=== PATIENT | female | born 1975 ===

== ENCOUNTER 2022-07-20 18:20 | Emergency (ER) | payer SELFPAY ==
[2022-07-20] MEDS ORDERED: LIDOCAINE (1%) 10 MG/1 ML VIAL 20 ML MDV INFILTRATI ONE ×2 (20:56→23:15)
[2022-07-20] MEDS ORDERED: ONDANSETRON 4 MG ODT TAB PO ONE (20:56)
[2022-07-20] MEDS ORDERED: CLINDAMYCIN 300 MG CAP PO ONE (20:56)
[2022-07-20] MEDS ORDERED: oxyCODONE /ACETAMINOPHEN 5-325MG TAB PO ONE (20:56)
[2022-07-20] MEDS ORDERED: SULFAMETHOXAZOLE/TRIMETHOPRIM 800/160MG DS TAB PO ONE (20:56)
--- NOTE | 2022-07-20 22:34 | Emergency Department Report ---
ED General Adult HPI - General Chief complaint: Urogenital-Female Stated complaint: VAGINAL INFECTION Source: patient Mode of arrival: Ambulatory Limitations: No Limitations - History of Present Illness Initial comments: Patient is a 47-year-old female with no past medical history presents to the ED with complaint of acute onset persistent painful swollen right Barthol in gland for the last 3 days. Patient states that the swelling and pain have worsened in the last 24 hours. Patient states that she has previously had similar symptoms which was drained at another hospital few years ago. Patient denies dizziness, syncope, fever, chills, abdominal pain, nausea and vomiting or chest pain, cough, sore throat, diarrhea, dysuria, urinary frequency or urgency or back pain. MD Complaint: Painful right Bartholin's cyst gland swelling -: Gradual, days(s) (3) Location: genitals Radiation: non-radiation Severity scale (0 -10): 8 Quality: aching, sharp Consistency: constant Improves with: none Worsens with: movement, other Associated Symptoms: denies other symptoms, rash (swollen painful right Bartholin's gland). denies: confusion, chest pain, cough, diaphoresis, fever/chills, loss of appetite, malaise, nausea/vomiting, seizure, shortness of breath, syncope, weakness Treatments Prior to Arrival: none - Related Data Previous Rx's Medication Instructions Recorded Last Taken Type Ciprofloxacin HCl [Ciprofloxacin 500 mg PO Q12H 10 Days #20 tab 11/21/18 Unknown Rx TAB] Ferrous Sulfate [Ferrous Sulfate 324 mg PO TID #90 tablet.dr 11/21/18 Unknown Rx 324 MG] Naproxen [Naprosyn] 500 mg PO BID PRN #12 tablet 11/21/18 Unknown Rx Ondansetron [Zofran ODT TAB] 8 mg PO Q8HR PRN #12 tab.rapdis 11/21/18 Unknown Rx Phenazopyridine [Pyridium] 200 mg PO TID PRN 3 Days #9 tab 11/21/18 Unknown Rx Clindamycin [Clindamycin CAP] 300 mg PO Q8H #30 cap 07/20/22 Unknown Rx Ibuprofen [Motrin] 600 mg PO Q8H PRN #30 tablet 07/20/22 Unknown Rx Sulfamethoxazole/Trimethoprim 1 each PO Q12H #20 tab 07/20/22 Unknown Rx [Bactrim DS TAB] traMADoL [Ultram] 50 mg PO Q6HR PRN #12 tablet 07/20/22 Unknown Rx Allergies Allergy/AdvReac Type Severity Reaction Status Date / Time No Known Allergies Allergy Verified 11/21/18 00:18 ED Review of Systems ROS: Stated complaint: VAGINAL INFECTION Other details as noted in HPI Constitutional: denies: chills, fever Eyes: denies: eye pain, eye discharge, vision change ENT: denies: ear pain, throat pain Respiratory: denies: cough, shortness of breath, wheezing Cardiovascular: denies: chest pain, palpitations Endocrine: no symptoms reported Gastrointestinal: denies: abdominal pain, nausea, diarrhea Genitourinary: other (swollen painful mildly erythematous rash on right Bartholin's gland). denies: urgency, dysuria, discharge Musculoskeletal: denies: back pain, joint swelling, arthralgia Skin: rash (swollen painful right Bartholin's gland ), change in color. denies: lesions, change in hair/nails, pruritus Neurological: denies: headache, weakness, paresthesias Psychiatric: denies: anxiety, depression Hematological/Lymphatic: denies: easy bleeding, easy bruising ED Past Medical Hx - Surgical History Additional Surgical History: x 1 - Social History Smoking Status: Never Smoker Substance Use Type: None - Medications Home Medications: Home Medications Medication Instructions Recorded Confirmed Last Taken Type Ciprofloxacin HCl [Ciprofloxacin 500 mg PO Q12H 10 Days #20 tab 11/21/18 Unknown Rx TAB] Ferrous Sulfate [Ferrous Sulfate 324 mg PO TID #90 tablet.dr 11/21/18 Unknown Rx 324 MG] Naproxen [Naprosyn] 500 mg PO BID PRN #12 tablet 11/21/18 Unknown Rx Ondansetron [Zofran ODT TAB] 8 mg PO Q8HR PRN #12 tab.rapdis 11/21/18 Unknown Rx Phenazopyridine [Pyridium] 200 mg PO TID PRN 3 Days #9 tab 11/21/18 Unknown Rx Clindamycin [Clindamycin CAP] 300 mg PO Q8H #30 cap 07/20/22 Unknown Rx Ibuprofen [Motrin] 600 mg PO Q8H PRN #30 tablet 07/20/22 Unknown Rx Sulfamethoxazole/Trimethoprim 1 each PO Q12H #20 tab 07/20/22 Unknown Rx [Bactrim DS TAB] traMADoL [Ultram] 50 mg PO Q6HR PRN #12 tablet 07/20/22 Unknown Rx ED Physical Exam - General Limitations: No Limitations General appearance: alert, in no apparent distress - Head Head exam: Present: atraumatic, normocephalic, normal inspection - Eye Eye exam: Present: normal appearance, PERRL, EOMI Pupils: Present: normal accommodation - ENT ENT exam: Present: normal exam, normal orophraynx, mucous membranes moist, TM's normal bilaterally, normal external ear exam - Neck Neck exam: Present: normal inspection, full ROM. Absent: tenderness - Respiratory Respiratory exam: Present: normal lung sounds bilaterally. Absent: respiratory distress, wheezes, rales, rhonchi, stridor, chest wall tenderness, accessory muscle use, decreased breath sounds, prolonged expiratory - Cardiovascular Cardiovascular Exam: Present: regular rate, normal rhythm, normal heart sounds. Absent: bradycardia, systolic murmur, diastolic murmur, rubs, gallop - GI/Abdominal GI/Abdominal exam: Present: soft, normal bowel sounds. Absent: tenderness, guarding, rebound, hyperactive bowel sounds, hypoactive bowel sounds, mass - External exam: Present: swelling, other (tender swollen right Bartholin's gland) Bi-manual exam: Present: other (Female assistant director of plant operations combat information center officer Ms Johnson present) - Extremities Exam Extremities exam: Present: normal inspection, full ROM, normal capillary refill. Absent: tenderness - Back Exam Back exam: Present: normal inspection, full ROM. Absent: tenderness, CVA tenderness (R), CVA tenderness (L), muscle spasm, paraspinal tenderness, vertebral tenderness - Neurological Exam Neurological exam: Present: alert, oriented X3, CN II-XII intact, normal gait, reflexes normal - Psychiatric Psychiatric exam: Present: normal affect, normal mood - Skin Skin exam: Present: warm, dry, intact, normal color, rash (swollen tender right Bartholin's gland cyst), erythema ED Course Vital Signs 07/20/22 19:35 Temperature 97.8 F Pulse Rate 81 Respiratory 18 Rate Blood Pressure 128/73 [Right] O2 Sat by Pulse 100 Oximetry - I & D Right Medial Vagina Type of Procedure: Simple Site: Right Bartholin's gland Blade Size: 11 I & D Procedure: betadine prep, sterile drapes applied, sterile dressing applied Progress: The area was cleaned extensively with normal saline and Betadine solution. Lidocaine 1% solution was used as a local anesthetic for a total of 6 cc. When anesthesia was fully achieved, the area was incised with a scalpel blade #11 and thick copious purulent discharge drained from the wound. The wound was then extensively the debrided with normal saline and flocculation's were broken with hemostat. The wound was Word catheter was inflated into the incision and the wound dressed appropriately. Patient tolerated procedure well. Patient was discharged home on medications for pain and antibiotics and advised to follow-up with her primary care physician in 5 to 7 days for reevaluation or return to the ED immediately if symptoms get worse. Patient was also advised to return to the ED in 7 days for removal of the Word catheter. ED Medical Decision Making - Medical Decision Making This is a 47-year-old female with no past medical history presents to the ED with complaint of acute onset persistent painful swollen right Bartholin gland for the last 3 days. Patient states that the swelling and pain have worsened in the last 24 hours. Patient states that she has previously had similar symptoms which was drained at another hospital few years ago. In the ED, patient is alert and oriented x3 and is not in any distress. Patient however appears to be in pain. Patient was treated for pain in the ED and also given initial oral antibiotics.The area was cleaned extensively with normal saline and Betadine solution. Lidocaine 1% solution was used as a local anesthetic for a total of 6 cc. When anesthesia was fully achieved, the area was incised with a scalpel blade #11 and thick copious purulent discharge drained from the wound. The wound was then extensively the debrided with normal saline and flocculation's were broken with hemostat. The wound was Word catheter was inflated into the incision and the wound dressed appropriately. Patient tolerated procedure well. Patient was discharged home on medications for pain and antibiotics and advised to follow-up with her primary care physician in 5 to 7 days for reevaluation or return to the ED immediately if symptoms get worse. Patient was also advised to return to the ED in 7 days for removal of the Word catheter. - Differential Diagnosis Bartholin's gland; Cellulitis; Folliculitis Critical care attestation.: If time is entered above; I have spent that time in minutes in the direct care of this critically ill patient, excluding procedure time. ED Disposition Clinical Impression: Bartholin's gland abscess, Cellulitis of female genitalia Disposition: HOME / SELF CARE / HOMELESS Is pt being admited?: No Does the pt Need Aspirin: No Condition: Stable Instructions: Cellulitis, Adult, [id number], Bartholin's Cyst, [id number] Additional Instructions: [place] los medicamentos con alimentos, ceferino muchos lquidos, gomez un seguimiento con alejandro mdico de atencin primaria en 7 a 10 peralta para lizeth reevaluacin. Regrese al servicio de urgencias inmediatamente si los sntomas empeoran. Prescriptions: Sulfamethoxazole/Trimethoprim [Bactrim DS TAB] 1 each PO Q12H #20 tab Clindamycin [Clindamycin CAP] 300 mg PO Q8H #30 cap Ibuprofen [Motrin] 600 mg PO Q8H PRN #30 tablet PRN Reason: Pain traMADoL [Ultram] 50 mg PO Q6HR PRN #12 tablet PRN Reason: Pain Referrals: FELIPE RODRIGUEZ MD [Primary Care Provider] - 3-5 Days Time of Disposition: 22:37 Print Language: DUTCH
[2022-07-20] MEDS ORDERED: INSULIN REGULAR, HUMAN 100 UNITS in SODIUM CHLORIDE 0.9% 99 ML IV SCH (23:45)
[2022-07-20] MEDS ORDERED: DEXTROSE 50% IN WATER (25GM) 50 ML SYRINGE IV PRN (23:58)
[2022-07-21 00:34] VITALS: BP 122/76
--- NOTE | 2022-07-25 04:45 | Emergency Department Report ---
ED General Adult HPI - General Chief complaint: Urogenital-Female Stated complaint: VAGINAL INFECTION Source: patient Mode of arrival: Ambulatory Limitations: No Limitations - History of Present Illness Initial comments: Patient is a 47-year-old female with past medical history of recurring bartholin cyst infections. Presents tonight for n/v/D after starting rx. clinda mycin and bactrim prescribed on 07/21/2022. pt denies fevers or chills. nausea was exacerbated by po intake however pt is tolerating po intake at this time, pt appears non toxic Location: genitals Severity scale (0 -10): 8 Quality: aching, sharp Improves with: none Worsens with: movement, other Associated Symptoms: denies other symptoms, rash (swollen painful right Bartholin's gland). denies: confusion, chest pain, cough, diaphoresis, fever/c hills, loss of appetite, malaise, nausea/vomiting, seizure, shortness of breath, syncope, weakness Treatments Prior to Arrival: none - Related Data Previous Rx's Medication Instructions Recorded Last Taken Type Ciprofloxacin HCl [Ciprofloxacin 500 mg PO Q12H 10 Days #20 tab 11/21/18 Unknown Rx TAB] Ferrous Sulfate [Ferrous Sulfate 324 mg PO TID #90 tablet.dr 11/21/18 Unknown Rx 324 MG] Naproxen [Naprosyn] 500 mg PO BID PRN #12 tablet 11/21/18 Unknown Rx Ondansetron [Zofran ODT TAB] 8 mg PO Q8HR PRN #12 tab.rapdis 11/21/18 Unknown Rx Phenazopyridine [Pyridium] 200 mg PO TID PRN 3 Days #9 tab 11/21/18 Unknown Rx Clindamycin [Clindamycin CAP] 300 mg PO Q8H #30 cap 07/20/22 Unknown Rx Ibuprofen [Motrin] 600 mg PO Q8H PRN #30 tablet 07/20/22 Unknown Rx Sulfamethoxazole/Trimethoprim 1 each PO Q12H #20 tab 07/20/22 Unknown Rx [Bactrim DS TAB] traMADoL [Ultram] 50 mg PO Q6HR PRN #12 tablet 07/20/22 Unknown Rx Allergies Allergy/AdvReac Type Severity Reaction Status Date / Time No Known Allergies Allergy Verified 11/21/18 00:18 ED Review of Systems ROS: Stated complaint: VAGINAL INFECTION Other details as noted in HPI Constitutional: denies: chills, fever Eyes: denies: eye pain, eye discharge, vision change ENT: denies: ear pain, throat pain Respiratory: denies: cough, shortness of breath, wheezing Cardiovascular: denies: chest pain, palpitations Endocrine: no symptoms reported Gastrointestinal: denies: abdominal pain, nausea, diarrhea Genitourinary: other (swollen painful mildly erythematous rash on right Bartholin's gland). denies: urgency, dysuria, discharge Musculoskeletal: denies: back pain, joint swelling, arthralgia Skin: rash (swollen painful right Bartholin's gland ), change in color. denies: lesions, change in hair/nails, pruritus Neurological: denies: headache, weakness, paresthesias Psychiatric: denies: anxiety, depression Hematological/Lymphatic: denies: easy bleeding, easy bruising ED Past Medical Hx - Surgical History Additional Surgical History: x 1 - Social History Smoking Status: Never Smoker Substance Use Type: None - Medications Home Medications: Home Medications Medication Instructions Recorded Confirmed Last Taken Type Ciprofloxacin HCl [Ciprofloxacin 500 mg PO Q12H 10 Days #20 tab 11/21/18 Unknown Rx TAB] Ferrous Sulfate [Ferrous Sulfate 324 mg PO TID #90 tablet.dr 11/21/18 Unknown Rx 324 MG] Naproxen [Naprosyn] 500 mg PO BID PRN #12 tablet 11/21/18 Unknown Rx Ondansetron [Zofran ODT TAB] 8 mg PO Q8HR PRN #12 tab.rapdis 11/21/18 Unknown Rx Phenazopyridine [Pyridium] 200 mg PO TID PRN 3 Days #9 tab 11/21/18 Unknown Rx Clindamycin [Clindamycin CAP] 300 mg PO Q8H #30 cap 07/20/22 Unknown Rx Ibuprofen [Motrin] 600 mg PO Q8H PRN #30 tablet 07/20/22 Unknown Rx Sulfamethoxazole/Trimethoprim 1 each PO Q12H #20 tab 07/20/22 Unknown Rx [Bactrim DS TAB] traMADoL [Ultram] 50 mg PO Q6HR PRN #12 tablet 07/20/22 Unknown Rx ED Physical Exam - General Limitations: No Limitations General appearance: alert, in no apparent distress ED Course Vital Signs 07/20/22 07/21/22 19:35 00:34 Temperature 97.8 F Pulse Rate 81 84 Respiratory 18 14 Rate Blood Pressure 128/73 122/76 [Right] O2 Sat by Pulse 100 100 Oximetry ED Medical Decision Making - Medical Decision Making Pt was seen on 07/21/2022 and discharge after I&D of right Bartholin cyst. pt was dc'd wtih rx for clindamycin, ultram, and bactrim, , Word Cath check, placement intact minimal drainage, there is no fever or chills , no n/v at this time, plan ad zofran prn, complete abx as prescribed and follow up with [facility] in 3 days, return to emergency if symptoms worsen. pt dc'd with rx for zofran odt prn nausea. pt is other tolerating po, voiding without problem, discharge is decreased. Outsole Beveler was used for this case, pt's at bedside, as her prefered material mover. Critical care attestation.: If time is entered above; I have spent that time in minutes in the direct care of this critically ill patient, excluding procedure time. ED Disposition Clinical Impression: Bartholin's gland abscess, Cellulitis of female genitalia Disposition: HOME / SELF CARE / HOMELESS Condition: Stable Instructions: Cellulitis, Adult, [id number], Bartholin's Cyst, [id number] Additional Instructions: [place] los medicamentos con alimentos, ceferino muchos lquidos, gomez un seguimiento con alejandro mdico de atencin primaria en 7 a 10 peralta para lizeth reevaluacin. Regrese al servicio de urgencias inmediatamente si los sntomas empeoran. Prescriptions: Sulfamethoxazole/Trimethoprim [Bactrim DS TAB] 1 each PO Q12H #20 tab Clindamycin [Clindamycin CAP] 300 mg PO Q8H #30 cap Ibuprofen [Motrin] 600 mg PO Q8H PRN #30 tablet PRN Reason: Pain traMADoL [Ultram] 50 mg PO Q6HR PRN #12 tablet PRN Reason: Pain Referrals: FELIPE RODRIGUEZ MD [Primary Care Provider] - 3-5 Days Print Language: CZECH
[2022-07-25] MEDS ORDERED: ONDANSETRON 4 MG ODT TAB PO ONE (04:56)
== END 2022-07-21 00:34 | disposition home or self-care (01) ==
LOC: ED 18:20
DX: N75.1 Abscess of Bartholin's gland (principal); N76.4 Abscess of vulva
CPT/HCPCS: 99282; 99283; J3490; Q9967; J1815; Q0162